=== PATIENT | male | born 1965 | race African-American/Black ===

== ENCOUNTER 2019-11-08 23:45 | Inpatient (IN) | payer BC, OTHER ==
[2019-11-09 01:32] VITALS: BMI 21.0
--- NOTE | 2019-11-09 02:02 | HP ---
COWS - Scale Resting Pulse: 0= TN 80 or Below Sweatin=Flushed/Facial Moisture Restless Observation: 0= Sits Still Pupil Size: 0= Normal to Room Light Bone or Joint Aches: 2= Severe Diffuse Aches Runny Nose/ Eye Tearin= Nasal Congestion GI Upset > 30mins: 2= Nausea/Diarrhea (nausea, no diarrhea) Tremor Observation: 2= Slight Tremor Visible Yawning Observation: 1= 1-2x During Session Anxiety or Irritability: 2=Irritable/Anxious Goose Flesh Skin: 0=Smooth Skin COWS Score: 12 CIWA Score Nausea/Vomitin Muscle Tremors: 3 Anxiety: 2 Agitation: 3 Paroxysmal Sweats: 2 Orientation: 1-Uncertain about Date Tacttile Disturbances: 0-None Auditory Disturbances: 0-None Visual Disturbances: 0-None Headache: 0-None Present CIWA-Ar Total Score: 13 - Admission Criteria [facility]ASAS Guidelines: Admission for Medically Managed Detox: Requires at least one of the followin. CIWA greater than 12 2. Seizures within the past 24 hours 3. Delirium tremens within the past 24 hours 4. Hallucinations within the past 24 hours 5. Acute intervention needed for co occurring medical disorder 6. Acute intervention needed for co occurring psychiatric disorder 7. Severe withdrawal that cannot be handled at a lower level of care (continued vomiting, continued diarrhea, abnormal vital signs) requiring intravenous medication and/or fluids 8. Admission ROS [facility] Chief Complaint: Seeking admission to detox from alcohol and heroin Allergies/Adverse Reactions: Allergies Allergy/AdvReac Type Severity Reaction Status Date / Time Penicillins Allergy Severe Rash Verified 11/09/19 01:59 History of Present Illness: 54 years old male is seeking admission to detox from alcohol and heroin. This is his first admission to [facility] and he reports that his last detox was at [facility]. Patient drinks 1 pint Vodka, 2 x 6 pack beer and uses 10 bags of heroin daily. He reports medical history of hep. C, hyperlipidemia, denies psych. history and suicidal ideation at this time. He is unemployed, lives with his family and denies legal issues. 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 Exam Limitations: No Limitations - Ebola screening Have you traveled outside of the country in the last 21 days: No Have you had contact with anyone from an Ebola affected area: No Have you been sick,other than usual withdrawal symptoms: No Do you have a fever: No - Review of Systems Constitutional: Chills, Night Sweats EENT: reports: Nose Congestion Respiratory: reports: No Symptoms reported Cardiac: reports: No Symptoms Reported GI: reports: Nausea, Poor Appetite, Poor Fluid Intake, Abdominal cramping : reports: No Symptoms Reported Musculoskeletal: reports: Other (abdominal pain) Integumentary: reports: Dryness, Flushing Neuro: reports: Tremors Endocrine: reports: No Symptoms Reported Hematology: reports: No Symptoms Reported Psychiatric: reports: Mood/Affect Appropiate, Anxious, Depressed Other Systems: Reviewed and Negative Patient History - Patient Medical History Hx Anemia: No Hx Asthma: No Hx Chronic Obstructive Pulmonary Disease (COPD): No Hx Cancer: No Hx Cardiac Disorders: No Hx Congestive Heart Failure: No Hx Hypertension: No Hx Hypercholesterolemia: Yes (Not on medication) HX Cerebrovascular Accident: No Hx Seizures: No Hx Diabetes: No Hx Gastrointestinal Disorders: No Hx Liver Disease: Yes (Hep C) Hx Sexually Transmitted Disorders: No Hx Renal Disease (ESRD): No Hx Thyroid Disease: No Hx Human Immunodeficiency Virus (HIV): No (Negative 2020) Hx Hepatitis C: Yes (Not treated) Hx Depression: No Hx Suicide Attempt: No (Denies suicidal ideation at this time) Hx Bipolar Disorder: No Hx Schizophrenia: No - Patient Surgical History Past Surgical History: No - PPD History Previous Implant?: No Documented Results: Negative w/o proof Implanted On Prior [facility] Admission?: No PPD to be Administered?: Yes - Reproductive History Patient is a Female of Child Bearing Age (11 -55 yrs old): No (male) - Smoking Cessation Smoking history: Current every day smoker Have you smoked in the past 12 months: Yes Aproximately how many cigarettes per day: 5 Hx Chewing Tobacco Use: No Initiated information on smoking cessation: Yes 'Breaking Loose' booklet given: 11/09/19 - Substance & Tx. History Hx Alcohol Use: Yes Hx Substance Use: Yes Substance Use Type: Alcohol, Cocaine, Heroin Hx Substance Use Treatment: Yes ([facility]) - Substances abused Alcohol Substance route: Oral Frequency: Daily Amount used: 1 pint Vodka, 2 x 6 pack beer Age of first use: 33 Date of last use: 11/08/19 Heroin Substance route: Injection Frequency: Daily Amount used: 10 bags Age of first use: 38 Date of last use: 11/08/19 Admission Physical Exam [facility] - Vital Signs Vital Signs: Vital Signs - 24 hr 11/09/19 01:21 Temperature 97.7 F Pulse Rate 71 Respiratory 18 Rate Blood Pressure 124/75 - Physical General Appearance: Yes: Moderate Distress, Tremorous, Irritable, Anxious HEENTM: Yes: Within Normal Limits Respiratory: Yes: Lungs Clear, Normal Breath Sounds, No Respiratory Distress Neck: Yes: Within Normal Limits Breast: Yes: Breast Exam Deferred Cardiology: Yes: Regular Rhythm, Regular Rate Abdominal: Yes: Normal Bowel Sounds, Soft Genitourinary: Yes: Within Normal Limits Back: Yes: Normal Inspection Musculoskeletal: Yes: Other (abdomnial pain) Extremities: Yes: Tremors Neurological: Yes: Within Normal Limits Integumentary: Yes: Warm Lymphatic: Yes: Within Normal Limits - Diagnostic (1) Opioid dependence with withdrawal Current Visit: Yes Status: Acute (2) Alcohol dependence with withdrawal, uncomplicated Current Visit: Yes Status: Acute (3) Cocaine dependence with withdrawal Current Visit: Yes Status: Chronic (4) Nicotine dependence Current Visit: Yes Status: Chronic (5) Hep C w/o coma, chronic Current Visit: Yes Status: Chronic (6) GERD (gastroesophageal reflux disease) Current Visit: Yes Status: Chronic Qualifiers: Esophagitis presence: esophagitis presence not specified Qualified Code(s): K21.9 - Gastro-esophageal reflux disease without esophagitis Cleared for Admission [facility] - Detox or Rehab [facility] Level of Care: Medically Managed Detox Regimen/Protocol: Methadone/Librium Claeared for Rehab Admission: No Breathalyzer - Breathalyzer Breathalyzer: 0.051 Urine Drug Screen - Test Device Lot number: [id number] Expiration date: 06/07/21 - Control Is test valid?: Yes - Results Drug screen NEGATIVE: No Urine drug screen results: ANGELA-Cocaine, FEN-Fentanyl, MOP-Opiates, BZO- Benzodiazepines Inpatient Rehab Admission - Rehab Decision to Admit Inpatient rehab admission?: No
[2019-11-09] MEDS ORDERED: MENTHOL/PHENOL 1 EACH UD MM PRN (02:22)
[2019-11-09] MEDS ORDERED: MAGNESIUM CITRATE 300 ML BOTTLE PO PRN (02:22)
[2019-11-09] MEDS ORDERED: chlordiazePOXIDE HCL 25 MG CAPSULE PO PRN (02:22)
[2019-11-09] MEDS ORDERED: MAG HYDROX/AL HYDROX/SIMETH 30 ML UNIT-DOSE CUP PO PRN (02:22)
[2019-11-09] MEDS ORDERED: IBUPROFEN 400 MG TABLET (FP) PO PRN (02:22)
[2019-11-09] MEDS ORDERED: ACETAMINOPHEN 325 MG TABLET (FP) PO PRN ×2 (02:22)
[2019-11-09] MEDS ORDERED: METHOCARBAMOL 500 MG TABLET PO PRN (02:22)
[2019-11-09] MEDS ORDERED: MAGNESIUM HYDROX 2400MG/30ML ORAL SUSPENSION 30 ML CUP PO PRN (02:22)
[2019-11-09] MEDS ORDERED: NICOTINE POLACRILEX 2 MG GUM BUC PRN (02:22)
[2019-11-09] MEDS ORDERED: ONDANSETRON *ODT* 4 MG TABLET SL PRN (02:22)
[2019-11-09] MEDS ORDERED: BISMUTH SUBSALICYLATE 524 MG/30 ML UD PO PRN (02:22)
[2019-11-09] MEDS ORDERED: METHADONE HCL 10 MG TABLET (FOR DETOX USE ONLY) PO ONE (03:15)
[2019-11-09] MEDS: chlordiazePOXIDE HCL 25 MG CAPSULE PO SCH ×4 (07:43→22:33)
[2019-11-09] MEDS: PRENATAL VITAMINS W/ FOLIC ACID TABLET (FP) PO SCH (10:35)
[2019-11-09] MEDS: NICOTINE 14 MG/24 HOURS TOPICAL PATCH TD SCH (10:36)
--- NOTE | 2019-11-09 13:32 | EKG ---
Test Reason : Blood Pressure : / mmHG Vent. Rate : 063 BPM Atrial Rate : 063 BPM P-R Int : 142 ms QRS Dur : 094 ms QT Int : 456 ms P-R-T Axes : 063 084 051 degrees QTc Int : 466 ms NORMAL SINUS RHYTHM NORMAL ECG Confirmed by MD ALEJANDRO, BAILEE ([id number]) on 11/09/2019 1:31:50 PM Referred By: Mario Peters Confirmed By:BAILEE ALLEN MD
--- NOTE | 2019-11-09 13:43 | PN ---
[facility] CIWA - CIWA Score Nausea/Vomitin-Mild Nausea/No Vomiting Muscle Tremors: 3 Anxiety: 3 Agitation: 1-Slight > Activity Paroxysmal Sweats: 2 Orientation: 0-Oriented Tacttile Disturbances: 0-None Auditory Disturbances: 0-None Visual Disturbances: 0-None Headache: 1-Very Mild CIWA-Ar Total Score: 11 [facility] COWS - Scale Resting Pulse: 0= [place] 80 or Below Sweatin= Chills/Flushing Restless Observation: 0= Sits Still Pupil Size: 1= Pupils >than Normal Bone or Joint Aches: 1= Mild Discomfort Runny Nose/ Eye Tearin= Nasal Congestion GI Upset > 30mins: 2= Nausea/Diarrhea Tremor Observation of Outstretched Hands: 2= Slight Tremor Visible Yawning Observation: 1= 1-2x During Session Anxiety or Irritability: 2=Irritable/Anxious Goose Flesh Skin: 0=Smooth Skin COWS Score: 11 [facility] Progress Note (SOAP) Subjective: 54 years old male was admitted on 11/09/19 for alcohol and opiate withdrawal sx management treating with librium and methadone detox regiment bmi 21.1 ensure 120 ml po tid with meals recommend picking up narcan from pharmacy upon discharged from detox Objective: 11/09/19 13:52 Vital Signs - 24 hr 11/09/19 11/09/19 11/09/19 01:21 03:14 06:28 Temperature 97.7 F 97.8 F 97.8 F Pulse Rate 71 58 L 62 Respiratory 18 18 18 Rate Blood Pressure 124/75 165/85 144/68 O2 Sat by Pulse 98 96 Oximetry (%) 11/09/19 10:32 Temperature 97.3 F L Pulse Rate 64 Respiratory 18 Rate Blood Pressure 114/73 O2 Sat by Pulse Oximetry (%) 11/09/19 13:55 clonidine 0.1 mg po q6h 11/09/19 13:56 lab pending Assessment: 11/09/19 13:56 alcohol and opiate withdrawal Plan: librium and methadone regiments
[2019-11-09] MEDS ORDERED: cloNIDine HCL 0.1 MG TABLET PO PRN (13:53)
[2019-11-09] MEDS: THIAMINE HCL 100 MG TABLET (FP) PO SCH (22:33)
[2019-11-09] MEDS: MELATONIN 5 MG TABLETS PO SCH (22:33)
[2019-11-10] MEDS: chlordiazePOXIDE HCL 25 MG CAPSULE PO SCH ×4 (05:48→22:11)
[2019-11-10] MEDS ORDERED: METHADONE HCL 5 MG TABLET (FOR DETOX USE ONLY) ONE (09:14)
[2019-11-10] MEDS ORDERED: METHADONE HCL 10 MG TABLET (FOR DETOX USE ONLY) ONE (09:14)
[2019-11-10] MEDS: PRENATAL VITAMINS W/ FOLIC ACID TABLET (FP) PO SCH (09:42)
[2019-11-10] MEDS ORDERED: METHADONE (DETOX) 20 MG, METHADONE (DETOX) 5 MG PO ONE (10:00)
[2019-11-10] MEDS: NICOTINE 14 MG/24 HOURS TOPICAL PATCH TD SCH (10:45)
--- NOTE | 2019-11-10 14:15 | PN ---
S CIWA - CIWA Score Nausea/Vomitin Muscle Tremors: 3 Anxiety: 3 Agitation: 3 Paroxysmal Sweats: 1-Minimal Palms Moist Orientation: 0-Oriented Tacttile Disturbances: 1-Very Mild Itch/Numbness Auditory Disturbances: 0-None Visual Disturbances: 0-None Headache: 2-Mild CIWA-Ar Total Score: 15 [facility] COWS - Scale Resting Pulse: 1= [place] 81-100 Sweatin= No chills or Flushing Restless Observation: 0= Sits Still Pupil Size: 1= Pupils >than Normal Bone or Joint Aches: 2= Severe Diffuse Aches Runny Nose/ Eye Tearin= Runny Nose/Eyes GI Upset > 30mins: 2= Nausea/Diarrhea Tremor Observation of Outstretched Hands: 2= Slight Tremor Visible Yawning Observation: 1= 1-2x During Session Anxiety or Irritability: 2=Irritable/Anxious Goose Flesh Skin: 0=Smooth Skin COWS Score: 13 [facility] Progress Note (SOAP) Subjective: alert,irritable,anxious,interrupted sleep,tremor,pain in the body and back ,nausea,vomiting Objective: 11/10/19 14:11 Vital Signs Temperature 97.8 F 11/10/19 13:18 Pulse Rate 82 11/10/19 13:18 Respiratory Rate 18 11/10/19 13:18 Blood Pressure 113/79 11/10/19 13:18 O2 Sat by Pulse Oximetry (%) 100 11/10/19 13:18 11/10/19 14:12 patient refused blood tests this am compliance issued agreed to comply with rules and regulation cbc,cmp,rpr ordered for am Assessment: 11/10/19 14:22 withdrawal symptom Plan: continue detox methadone and librium regimen
[2019-11-10] MEDS: BACITRACIN 0.9 GM PACKET TP SCH (22:11)
[2019-11-10] MEDS: THIAMINE HCL 100 MG TABLET (FP) PO SCH (22:11)
[2019-11-10] MEDS: MELATONIN 5 MG TABLETS PO SCH (22:11)
[2019-11-11] MEDS ORDERED: chlordiazePOXIDE HCL 10 MG CAPSULE PO PRN
[2019-11-11] MEDS: chlordiazePOXIDE HCL 10 MG CAPSULE PO SCH ×2 (06:31→10:44)
[2019-11-11 09:32] VITALS: BP 132/58; PULSE 58; TEMP 97.7
[2019-11-11] MEDS ORDERED: METHADONE HCL 10 MG TABLET (FOR DETOX USE ONLY) PO ONE (10:00)
--- NOTE | 2019-11-11 10:32 | DS ---
[facility] Detox Discharge Summary Admission Date: 11/09/19 Discharge Date: 11/11/19 - History Present History: Alcohol Dependence, Cocaine Dependence, Opioid Dependence Additional Comments: patient discharged involuntary,please see the progress note Pertinent Past History: hepatitis c gerd nicotine dependence - Physical Exam Results Vital Signs: Vital Signs Temperature 97.7 F 11/11/19 09:00 Pulse Rate 58 L 11/11/19 09:00 Respiratory Rate 18 11/11/19 09:00 Blood Pressure 132/58 L 11/11/19 09:00 O2 Sat by Pulse Oximetry (%) 100 11/11/19 06:00 Pertinent Admission Physical Exam Findings: withdrawal signs and symptom Vital Signs Temperature 97.7 F 11/11/19 09:00 Pulse Rate 58 L 11/11/19 09:00 Respiratory Rate 18 11/11/19 09:00 Blood Pressure 132/58 L 11/11/19 09:00 O2 Sat by Pulse Oximetry (%) 100 11/11/19 06:00 - Medication Discharge Medications: Ambulatory Orders Naloxone HCl [Narcan] 4 mg NS ASDIR PRN #1 spray 11/09/19 - Diagnosis (1) Alcohol dependence with withdrawal, uncomplicated Current Visit: Yes Status: Acute (2) Opioid dependence with withdrawal Current Visit: Yes Status: Acute (3) Cocaine dependence with withdrawal Current Visit: Yes Status: Chronic (4) GERD (gastroesophageal reflux disease) Current Visit: Yes Status: Chronic Qualifiers: Esophagitis presence: esophagitis presence not specified Qualified Code(s): K21.9 - Gastro-esophageal reflux disease without esophagitis (5) Hep C w/o coma, chronic Current Visit: Yes Status: Chronic (6) Nicotine dependence Current Visit: Yes Status: Chronic - AMA Did Patient Leave Against Medical Advice: No
--- NOTE | 2019-11-11 10:32 | PN ---
[facility] Progress Note Note: patient is non compliance with the rule and regulation,has been contracted before ,has been refusing blood test and unit rule conference call ,Lani Bland nursing informatics analyst,Licha Johnson Clinical Antique Clock Repairer,Nasim Rivera counselor, and myself, all agreed for Involuntary discharge,patient also with aggressive behavior,ab usive,threatening the staff,pushing the computer, attempting to damage the property,securities present,patient escorted off the unit by securities
[2019-11-11] MEDS: BACITRACIN 0.9 GM PACKET TP SCH (10:43)
[2019-11-11] MEDS: NICOTINE 14 MG/24 HOURS TOPICAL PATCH TD SCH (10:44)
[2019-11-11] MEDS: PRENATAL VITAMINS W/ FOLIC ACID TABLET (FP) PO SCH (10:44)
[2019-11-12] MEDS ORDERED: chlordiazePOXIDE HCL 10 MG CAPSULE PO SCH (05:00)
[2019-11-12] MEDS ORDERED: METHADONE (DETOX) 10 MG, METHADONE (DETOX) 5 MG PO ONE (10:00)
[2019-11-13] MEDS ORDERED: chlordiazePOXIDE HCL 10 MG CAPSULE PO ONE (05:00)
[2019-11-13] MEDS ORDERED: METHADONE HCL 10 MG TABLET (FOR DETOX USE ONLY) PO ONE (10:00)
[2019-11-14] MEDS ORDERED: METHADONE HCL 5 MG TABLET (FOR DETOX USE ONLY) PO ONE (06:00)
== END 2019-11-11 13:51 | disposition left against medical advice (07) | DRG 773 ==
LOC: YASAS 23:45 → Y3N 11-09 02:22
PROVIDERS: ADMIT Allergy & Immunology; ATTEND Allergy & Immunology
PROC: HZ2ZZZZ Detoxification Services for Substance Abuse Treatment (ICD-10-PCS; principal; 2019-11-09)
DX: F10.230 Alcohol dependence with withdrawal, uncomplicated (principal); F11.23 Opioid dependence with withdrawal; F14.23 Cocaine dependence with withdrawal; F17.210 Nicotine dependence, cigarettes, uncomplicated; E78.5 Hyperlipidemia, unspecified; K21.9 Gastro-esophageal reflux disease without esophagitis; B18.2 Chronic viral hepatitis C; F91.8 Other conduct disorders; Z91.19 Patient's noncompliance with other medical treatment and regimen; Z88.8 Allergy status to other drugs, medicaments and biological substances; Z56.0 Unemployment, unspecified
CPT/HCPCS: 93005; 93010; U0003

== ENCOUNTER 2021-09-12 16:51 | Inpatient (IN) | payer BC ==
[2021-09-12 18:19] VITALS: BMI 19.5
[2021-09-12] MEDS ORDERED: LOPERAMIDE HCL 2 MG CAPSULE PO PRN (18:56)
[2021-09-12] MEDS ORDERED: IBUPROFEN 400 MG TABLET (FP) PO PRN (18:56)
[2021-09-12] MEDS ORDERED: ACETAMINOPHEN 325 MG TABLET (FP) PO PRN ×2 (18:56)
[2021-09-12] MEDS ORDERED: BENZOCAINE/MENTHOL (CHLORASEPTIC ) LOZENGE MM PRN (18:56)
[2021-09-12] MEDS ORDERED: MAGNESIUM CITRATE 300 ML BOTTLE PO PRN (18:56)
[2021-09-12] MEDS ORDERED: DICYCLOMINE HCL 10 MG CAPSULE PO PRN (18:56)
[2021-09-12] MEDS ORDERED: NICOTINE 10 MG CARTRIDGE (INHALER) IH PRN (18:56)
[2021-09-12] MEDS ORDERED: chlordiazePOXIDE HCL 25 MG CAPSULE PO PRN (18:56)
[2021-09-12] MEDS ORDERED: IBUPROFEN 600 MG TABLET (FP) PO PRN (18:56)
[2021-09-12] MEDS ORDERED: methaDONE HCL 10 MG TABLET (FOR DETOX USE ONLY) PO ONE (18:56)
[2021-09-12] MEDS ORDERED: cloNIDine HCL 0.1 MG TABLET PO PRN (18:56)
[2021-09-12] MEDS ORDERED: NALOXONE HCL (KLOXXADO) 8 MG SPRAY NS PRN (18:56)
[2021-09-12] MEDS ORDERED: BISMUTH SUBSALICYLATE 524 MG/30 ML PO PRN (18:56)
[2021-09-12] MEDS ORDERED: MAGNESIUM HYDROX 2400MG/30ML ORAL SUSPENSION 30 ML CUP PO PRN (18:56)
[2021-09-12] MEDS ORDERED: MAG HYDROX/AL HYDROX/SIMETH 30 ML UNIT-DOSE CUP PO PRN (18:56)
[2021-09-12] MEDS: MELATONIN 5 MG TABLETS PO SCH (22:59)
[2021-09-12] MEDS: THIAMINE HCL 100 MG TABLET (FP) PO SCH (22:59)
[2021-09-12] MEDS: chlordiazePOXIDE HCL 25 MG CAPSULE PO SCH (23:00)
[2021-09-13] MEDS: chlordiazePOXIDE HCL 25 MG CAPSULE PO SCH ×4 (06:29→22:37)
[2021-09-13] MEDS ORDERED: methaDONE HCL 10 MG TABLET (FOR DETOX USE ONLY) ONE (09:12)
[2021-09-13] MEDS: PRENATAL VITAMINS W/ FOLIC ACID TABLET (FP) PO SCH (10:51)
[2021-09-13] MEDS: METHOCARBAMOL 500 MG TABLET PO PRN (10:52)
[2021-09-13] MEDS: THIAMINE HCL 100 MG TABLET (FP) PO SCH (22:37)
[2021-09-13] MEDS: MELATONIN 5 MG TABLETS PO SCH (22:38)
[2021-09-14] MEDS: chlordiazePOXIDE HCL 25 MG CAPSULE PO SCH ×4 (06:02→22:33)
[2021-09-14] MEDS ORDERED: methaDONE HCL 10 MG TABLET (FOR DETOX USE ONLY) PO ONE (10:00)
[2021-09-14] MEDS: PRENATAL VITAMINS W/ FOLIC ACID TABLET (FP) PO SCH (10:47)
[2021-09-14] MEDS: METHOCARBAMOL 500 MG TABLET PO PRN (18:11)
[2021-09-14] MEDS: THIAMINE HCL 100 MG TABLET (FP) PO SCH (22:33)
[2021-09-14] MEDS: MELATONIN 5 MG TABLETS PO SCH (22:34)
[2021-09-15] MEDS ORDERED: chlordiazePOXIDE HCL 10 MG CAPSULE PO PRN
[2021-09-15] MEDS: chlordiazePOXIDE HCL 10 MG CAPSULE PO SCH ×4 (05:23→23:47)
[2021-09-15] MEDS ORDERED: methaDONE HCL 10 MG TABLET (FOR DETOX USE ONLY) ONE (09:05)
[2021-09-15] MEDS: PRENATAL VITAMINS W/ FOLIC ACID TABLET (FP) PO SCH (10:37)
[2021-09-15] MEDS: METHOCARBAMOL 500 MG TABLET PO PRN ×2 (10:38→16:53)
[2021-09-15] MEDS: MELATONIN 5 MG TABLETS PO SCH (21:01)
[2021-09-15] MEDS: THIAMINE HCL 100 MG TABLET (FP) PO SCH (21:01)
[2021-09-16] MEDS: chlordiazePOXIDE HCL 10 MG CAPSULE PO SCH ×2 (06:13→17:39)
[2021-09-16] MEDS ORDERED: methaDONE HCL 10 MG TABLET (FOR DETOX USE ONLY) PO ONE (10:00)
[2021-09-16] MEDS: PRENATAL VITAMINS W/ FOLIC ACID TABLET (FP) PO SCH (10:10)
[2021-09-16] MEDS: METHOCARBAMOL 500 MG TABLET PO PRN ×2 (13:08→18:45)
[2021-09-16] MEDS: MELATONIN 5 MG TABLETS PO SCH (21:56)
[2021-09-16] MEDS: THIAMINE HCL 100 MG TABLET (FP) PO SCH (21:56)
[2021-09-17] MEDS ORDERED: chlordiazePOXIDE HCL 10 MG CAPSULE PO ONE (05:00)
[2021-09-17 09:09] VITALS: BP 153/77; PULSE 70; TEMP 98
[2021-09-17] MEDS: PRENATAL VITAMINS W/ FOLIC ACID TABLET (FP) PO SCH (10:01)
== END 2021-09-17 10:15 | disposition home or self-care (01) | DRG 773 ==
LOC: YASAS 16:51 → Y6N 19:41
PROVIDERS: ADMIT Allergy & Immunology; ATTEND Surgery
PROC: HZ2ZZZZ Detoxification Services for Substance Abuse Treatment (ICD-10-PCS; principal; 2021-09-12)
DX: F11.23 Opioid dependence with withdrawal (principal); F10.230 Alcohol dependence with withdrawal, uncomplicated; F14.20 Cocaine dependence, uncomplicated; F17.210 Nicotine dependence, cigarettes, uncomplicated; F41.9 Anxiety disorder, unspecified; K21.9 Gastro-esophageal reflux disease without esophagitis; B18.2 Chronic viral hepatitis C; Z28.310 Unvaccinated for COVID-19; Z88.0 Allergy status to penicillin; Z91.011 Allergy to milk products; Z91.018 Allergy to other foods
CPT/HCPCS: C9803-CS; J0735; U0003; U0005